=== PATIENT | female | born 1990 | race Caucasian/White ===

== ENCOUNTER → 2017-12-17 | Outpatient (CLI) | payer BC | LOC: M WUC 09:32 | DX: S30.0XXA Contusion of lower back and pelvis, initial encounter (principal) | CPT/HCPCS: 72110 ==

== ENCOUNTER → 2020-06-29 | Outpatient (CLI) | payer BC ==
--- NOTE | 2020-06-29 15:17 | REP ---
INDICATION: ANATOMY. COMPARISON: None. TECHNIQUE: Real-time sonographic evaluation of the gravid uterus performed. FINDINGS: Estimated gestational age is18 weeks 0 days, EDC 11/30/2020. Today's measurements indicate appropriate growth. Presentation: Breech Placenta anterior, grade 0, without evidence of placenta previa. heart rate is recorded at 133 beats per minute. Amniotic fluid is subjectively normal. Closed cervical length is measured at 3.3 cm. Biometry chart: BPD: 40 mm, 18 weeks 2 days, 57th percentile. HC: 155 mm, 18 weeks 3 days, 63rd percentile AC: 127 mm, 18 weeks 2 days, 56th percentile Femur length: 25 mm, 17 weeks 4 days, for 38th percentile HC to AC ratio: 1.22, normal range 1.07-1.26. Estimated weight: 220g, 46th percentile. anatomy: Cranium: Grossly normal Lateral Ventricles/Choroid Plexus: Grossly normal Posterior Fossa/Cerebellum: Grossly normal Nose/lips/profile: Grossly normal Four chamber heart: Not well seen due to position Right ventricular outflow tract: Not well seen due to position Left ventricular outflow tract: Not well seen due to position Left-sided stomach: Grossly normal Kidneys: Grossly normal Bladder: Grossly normal Cord Insertion: Grossly normal 3 vessel cord: Grossly normal Spine: Grossly normal IMPRESSION: Viable single intrauterine gestation as above. <Electronically signed by Luis Castillo > 06/29/20 [id number]
== END ==
LOC: M WHC 10:32
PROVIDERS: ATTEND Obstetrics & Gynecology
DX: Z34.82 Encounter for supervision of other normal pregnancy, second trimester (principal); Z3A.18 18 weeks gestation of pregnancy

== ENCOUNTER → 2020-08-06 | Outpatient (CLI) | payer BC ==
--- NOTE | 2020-08-06 10:02 | REP ---
INDICATION: F/U ANATOMY COMPARISON: 06/29/2020 TECHNIQUE: Transabdominal obstetrical ultrasound with color Doppler evaluation. FINDINGS: Examination demonstrates a single live intrauterine in transverse presentation. motion is identified by technologist. Placenta is noted anterior and grade 1 without evidence for placenta previa or abruption. Amniotic fluid volume is normal. Cervix measures 4.3 cm in length and appears closed.. Gestational age by LMP and 1st U/S 23 weeks 3 days with RAZIA 11/30/2020. Gestational age by current measurements 24 weeks 4 days with RAIZA 11/22/2020. FHR equals 142 beats per minute. Estimated weight 693 grams (85thpercentile). Anatomical assessment demonstrates normal structures including cranium, choroid plexus, cavum, facial features, lungs, four-chamber heart/ventricular outflow tracts, diaphragm, stomach, cord insertion/three-vessel cord, kidneys/bladder, spine, and extremities. IMPRESSION: Single live intrauterine in transverse lie demonstrating appropriate interval growth. In conjunction with prior examination anatomical assessment is complete and normal. <Electronically signed by Sergio Perkins > 08/06/20 [id number]
== END ==
LOC: M WHC 07:15
PROVIDERS: ATTEND Obstetrics & Gynecology
DX: Z34.82 Encounter for supervision of other normal pregnancy, second trimester (principal)

== ENCOUNTER → 2020-08-17 | Outpatient (REF) | payer BC ==
[2020-08-17 13:55] LABS: HEMATOCRIT 36.6 % (36.0-47.0); HEMOGLOBIN 11.9 g/dl (12.0-15.5); MEAN CORPUSCULAR HGB CONC 32.5 g/dl (32.0-36.5); MEAN CORPUSCULAR VOLUME 95.3 fl (80.0-96.0); PLATELET COUNT, AUTOMATED 285 10^3/uL (150-450); RED BLOOD COUNT 3.84 10^6/uL (4.00-5.40); WHITE BLOOD COUNT 7.8 10^3/uL (4.0-10.0)
== END ==
LOC: M PLALAB 09:03
PROVIDERS: ATTEND Specialist
DX: Z34.82 Encounter for supervision of other normal pregnancy, second trimester (principal)

== ENCOUNTER → 2020-11-01 | Outpatient (REF) | payer BC | LOC: M SFHCWAGY 12:59 | PROVIDERS: ATTEND Advanced Practice Midwife | DX: Z36.89 Encounter for other specified antenatal screening (principal); Z3A.35 35 weeks gestation of pregnancy ==

== ENCOUNTER 2020-11-27 21:25 | Inpatient (IN) | payer BC ==
[~2020-11-27] VITALS: Ht 160 cm; Wt 86.4 kg
[2020-11-27 21:58] VITALS: BP 103/53
[2020-11-27] MEDS ORDERED: PROMETHAZINE INJ 25 MG/ML VIAL (J2550) IV ONE (22:05)
[2020-11-27] MEDS ORDERED: BUTORPHANOL 2 MG/ML INJ (J0595) IV ONE (22:05)
[2020-11-27 22:35] LABS: HEMOGLOBIN 11.4 g/dl (12.0-15.5); MEAN CORPUSCULAR HEMOGLOBIN 30.3 pg (27.0-33.0); MEAN CORPUSCULAR HGB CONC 33.5 g/dl (32.0-36.5); MEAN CORPUSCULAR VOLUME 90.4 fl (80.0-96.0); PLATELET COUNT, AUTOMATED 280 10^3/uL (150-450); RED BLOOD COUNT 3.76 10^6/uL (4.00-5.40); WHITE BLOOD COUNT 8.9 10^3/uL (4.0-10.0)
[2020-11-27 23:17] VITALS: BP 118/75
[2020-11-28] VITALS (11 sets, daily range): BP systolic 95–119; BP diastolic 53–61
--- NOTE | 2020-11-28 00:12 | HPEPDOC ---
Obstetrical History & Physical General Date of Admission Nov 27, 2020 at 21:58 History of Present Illness Paris is a 30-year-old three para two who presents at 39 weeks 4 days estimated gestational age with complaints of regular pattern contractions. She reports approximately an hour prior to presentation she had leakage of clear fluid. 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 She has had appropriate care throughout her . Chief Complaint: Contractions, term, LOF, term Information Provided By: Patient Age: 30 : 3 Livin Care Care: Good Care Dating Final EDC: Nov 30, 2020 Final EDC by: LMP EGA at Admission: 39 Past Medical History Past Obstetrical History #1: Past Obstetrical History: Multigravida Date of Delivery: Feb 11, 2013 Type of Delivery: Spontaneous Vaginal Del. Sex of Infant: Female Complications: No Past Obstetrical History #2: Date of Delivery: Jul 06, 2015 Type of Delivery: Spontaneous Vaginal Del. Sex of Infant: Female Complications: No Past Medical History Surgical History: Appendectomy, Tonsilectomy, [place] teeth, Other (bilateral tympanstomy ) Family History Significant Family History: Cancer, Hypertension Social History Marital Status: Family situation: Spouse/partner home Psychosocial History: Anxiety * Smoker: non-smoker Alcohol: Denies Drugs: denies Allergies Coded Allergies: Penicillins (Verified Allergy, Mild, 11/27/20) Physical Examination Physical Examination GENERAL: Alert and oriented times three. BREAST: . ABDOMEN: Gravid and non-tender to touch. FETUS: Is vertex (VTX) by sterile vaginal examination (SVE), fetus is vertex (VTX) by Swapnil. HEART RATE: Regular rate and rhythm. LUNGS: Clear to auscultation (CTA). Vital Signs/I&O Vital Signs Date Time Temp Pulse Resp B/P (MAP) Pulse Ox O2 Delivery O2 Flow Rate FiO2 11/27/20 23:01 18 11/27/20 21:58 97.9 78 103/53 (70) Laboratory Data 24H LABS Laboratory Tests 2 11/27/20 22:21: Nucleated Red Blood Cells % (auto) 0.0, Syphilis Serology NONREACTIVE CBC/BMP Laboratory Tests 11/27/20 22:21 Pertinent Laboratoy Data Blood Type: O+ RBC Antibody Screen: Negative HIV: Negative Hepatitis B: Negative Rapid Plasma Reagin: Nonreactive Rubella: Immune Chlamydia/Gonorrhea: Negative Group B Streptococcus: Negative Anatomy Ultrasound Placenta Location: Anterior Placenta Previa: No Vaginal Examination Dilation: 5 cm Effacement: 80% Station: -2 Cervical Consistency: Soft (Grossly ruptured) Assessment Variability: Moderate Accelerations: Positive Tocometer Contractions: Yes Frequency: regular Assessment/Plan Assessment 30-year-old G3, P2 at [id number] with spontaneous rupture of membranes Reassuring status Plan Admit and orient. Grain Inspector and consent. Diet: Clears. Group B Streptococcus (GBS) negative. Labs and intravenous (IV) per unit protocol. Counseled on Pitocin and induction of labor (IOL). Anticipate normal spontaneous delivery (). C-S as appropriate. MANDO STUART MD. Nov 28, 2020 00:12
[2020-11-28] MEDS ORDERED: OXYTOCIN 30 UNITS IN 0.9% NaCl 500ML IV BAG (J2590) As Ordered ONE (02:10)
[2020-11-28] MEDS ORDERED: OXYTOCIN DRIP 30 UNITS in IV 1 EA IV SCH (02:30)
[2020-11-28] MEDS ORDERED: IBUPROFEN 800 MG TAB PO PRN (02:30)
[2020-11-28] MEDS ORDERED: MOM 30ML SUSPENSION UDC PO PRN (02:30)
[2020-11-28] MEDS ORDERED: DIBUCAINE 1% OINTMENT 30GM TOP PRN (02:30)
[2020-11-28] MEDS ORDERED: DOCUSATE SODIUM 100MG CAPSULE PO PRN (02:30)
[2020-11-28] MEDS ORDERED: METHYLERGONOVINE MALEATE 0.2 MG TAB PO PRN (02:30)
[2020-11-28] MEDS ORDERED: MEASLES,MUMPS,RUBELLA VACCINE INJ (MMR-II) (90707) SC SCH (02:30)
[2020-11-28] MEDS ORDERED: ACETAMINOPHEN TAB 650MG DOSE (2X325MG) PO PRN (02:30)
[2020-11-28] MEDS ORDERED: RHOGAM 300 MCG (1500 IU) INJ (J2790) IM SCH (02:30)
--- NOTE | 2020-11-28 02:34 | DNPDOC ---
[facility] Delivery Note Delivery Note DATE OF DELIVERY: November 28, 2020 TIME OF : 0208 GENDER: Female APGARS: 9 and 9. WEIGHT: 3910g or 8 pounds 10 ounces LACERATIONS: None ANESTHESIA: None ESTIMATED BLOOD LOSS: 200 ml COUNTS: 5 laparotomy sponges accounted for prior to after delivery. DELIVERY NOTE: On November 28, 2020 this patient is a 30-year-old 3 now para 3 had a spontaneous vaginal delivery of a liveborn female Apgars 9 and 9 weight was 3910 g 8 pounds 10 ounces. Head was delivered occiput anterior (OA), followed by delivery of the shoulders and corpus. Infant was handed to mom with a good cry. Cord was clamped times two and was cut by support person under my direction. Placenta was then drained and delivered grossly intact. A premixed bag of 500 mL of normal saline with 30 units of Pitocin was then bolused along with uterine massage until the uterus was firm. On inspection, cervix, vagina, perineum was grossly intact and hemostatic. Mom and baby in recovery on stable condition. Couples decided in a new daughter's MANDO Andino MD. Nov 28, 2020 02:34
[2020-11-28] MEDS: MAGNESIUM GLUCONATE 500 MG TAB PO SCH (04:11)
[2020-11-28] MEDS: ACETAMINOPHEN 500 MG TAB PO PRN ×2 (08:19→15:09)
[2020-11-28] MEDS: PRENATAL VITAMINS CHEWABLE TABLET PO SCH (08:19)
[2020-11-29] MEDS: IBUPROFEN 600MG TAB PO PRN ×3 (01:58→14:20)
[2020-11-29 06:00] VITALS: BP 94/53
[2020-11-29 07:28] VITALS: BP 103/53
[2020-11-29] MEDS: PRENATAL VITAMINS CHEWABLE TABLET PO SCH ×2 (08:15→08:17)
[2020-11-29] MEDS: MAGNESIUM GLUCONATE 500 MG TAB PO SCH (09:14)
[2020-11-29] MEDS ORDERED: IBUP80TA PO (17:23)
--- NOTE | 2020-11-29 17:47 | IPNPDOC ---
Progress Note Date of Service: Nov 29, 2020 Day#: 1 Progress Note SUBJECT: Status post . She has been ambulating, voiding spontaneously with out issue and tolerating regular diet. Lochia decreasing/minimal. Pain is well- controlled. Denies headache, visual changes, right upper quadrant pain, shortness breath or chest pain. OBJECTIVE: VITAL SIGNS: Within normal limits, afebrile. Alert and oriented times three. Abdomen: Fundus firm at U-2. Soft, NTTP. ASSESSMENT: Status post uncomplicated spontaneous vaginal delivery. Vitals within normal limits, afebrile, hemodynamically stable with no evidence of infection. PLAN: Discharge to home today. Tylenol and Motrin for pain. Routine instructions/precautions reviewed. Routine PP visit in 6 weeks in clinic. VS, I&O, 24H, Fishbone Vital Signs/I&O Vital Signs Date Time Temp Pulse Resp B/P (MAP) Pulse Ox O2 Delivery O2 Flow Rate FiO2 11/29/20 07:28 98.6 73 20 103/53 (70) 100 Room Air SHARRON DUMONT DO Nov 29, 2020 17:47
== END 2020-11-29 17:45 | disposition home or self-care (01) | DRG 560 ==
LOC: M LDO 21:25 → M LDI 21:58 → M PED 11-28 06:27
PROVIDERS: ADMIT Obstetrics & Gynecology; ATTEND Obstetrics & Gynecology
PROC: 10E0XZZ Delivery of Products of Conception, External Approach (ICD-10-PCS; principal; 2020-11-28)
DX: O80 Encounter for full-term uncomplicated delivery (principal); Z37.0 Single live birth; Z3A.39 39 weeks gestation of pregnancy

== ENCOUNTER → 2021-09-03 | Outpatient (REF) | payer BC ==
[~2021-09-03] MED LIST: IBUP80TA PO
== END ==
LOC: M SFHCWAGY 17:23
PROVIDERS: ATTEND Obstetrics & Gynecology
DX: Z12.4 Encounter for screening for malignant neoplasm of cervix (principal)

== ENCOUNTER → 2022-01-06 | Outpatient (CLI) | payer BC ==
[~2022-01-06] MED LIST changes: +CETI-24 PO; +FLON1SPR; +MULT1CHW29 PO; +SERT50TA29 PO
== END ==
LOC: M LABSMTC 11:01
PROVIDERS: ATTEND Anesthesiology
DX: Z01.812 Encounter for preprocedural laboratory examination (principal); Z20.822 Contact with and (suspected) exposure to COVID-19

== ENCOUNTER 2022-01-08 07:35 | Day surgery (SDC) | payer BC ==
[~2022-01-08] VITALS: Ht 160 cm; Wt 86.2 kg
[2022-01-08] MEDS ORDERED: KETOROLAC 60MG 2ML VIAL As Ordered ONE ×2 (08:03→09:28)
[2022-01-08] MEDS ORDERED: MIDAZOLAM INJ 2MG/2ML VIAL (J2250 PER 1MG) As Ordered ONE (08:03)
[2022-01-08] MEDS ORDERED: ONDANSETRON 4MG 2ML VIAL As Ordered ONE ×2 (08:03→09:28)
[2022-01-08] MEDS ORDERED: fentaNYL 100 MCG/2 ML INJECTION As Ordered ONE ×2 (08:03→09:44)
[2022-01-08] MEDS ORDERED: METOCLOPRAMIDE INJ 10MG/2ML VIAL (J2765 PER 1) As Ordered ONE ×2 (08:03→09:28)
[2022-01-08] MEDS ORDERED: LIDOCAINE 2% 100MG/5ML SDV (FOR ANES.) As Ordered ONE (08:03)
[2022-01-08] MEDS ORDERED: SUGAMMADEX SODIUM 500 MG/5 ML VIAL (BRIDION) As Ordered ONE ×2 (08:03→09:28)
[2022-01-08] MEDS ORDERED: ROCURONIUM BROMIDE 50 MG/5 ML VIAL As Ordered ONE ×2 (08:03→09:28)
[2022-01-08] MEDS ORDERED: propofoL 200 MG/20 ML VIAL As Ordered ONE ×3 (08:03→10:25)
[2022-01-08] MEDS ORDERED: dexameTHASONE 4 MG/ML 1ML VIAL (J1100 PER 1MG) As Ordered ONE ×2 (08:03→09:28)
[2022-01-08] MEDS ORDERED: LR 1,000 ML IV SCH ×2 (08:20→10:30)
[2022-01-08 08:29] LABS: HEMATOCRIT 41.9 % (36.0-47.0); HEMOGLOBIN 13.6 g/dl (12.0-15.5); MEAN CORPUSCULAR HEMOGLOBIN 29.4 pg (27.0-33.0); MEAN CORPUSCULAR HGB CONC 32.5 g/dl (32.0-36.5); MEAN CORPUSCULAR VOLUME 90.5 fl (80.0-96.0); PLATELET COUNT, AUTOMATED 376 10^3/uL (150-450); RED BLOOD COUNT 4.63 10^6/uL (4.00-5.40); WHITE BLOOD COUNT 7.2 10^3/uL (4.0-10.0)
[2022-01-08] MEDS ORDERED: BUPIVACAINE HCL 0.25% 10ML VIAL As Ordered ONE (08:58)
[2022-01-08 09:02] LABS: HCG, SERUM QUALITATIVE NEGATIVE (NEGATIVE)
[2022-01-08] MEDS ORDERED: BUPIVACAINE HCL 0.25% 30ML VIAL As Ordered ONE (09:11)
[2022-01-08] MEDS ORDERED: ACETAMINOPHEN 1000MG 100ML IV BTL (OFIRMEV) (J0131 PER 10MG) As Ordered ONE (09:28)
[2022-01-08] MEDS ORDERED: fentaNYL 100 MCG/2 ML INJECTION IV PRN (10:30)
[2022-01-08] MEDS ORDERED: ONDANSETRON 4MG 2ML VIAL IV PRN (10:30)
[2022-01-08] MEDS ORDERED: oxyCODONE 5MG TAB PO PRN (10:30)
[2022-01-08] MEDS ORDERED: IBUP1TAB7 PO (10:37)
[2022-01-08] MEDS ORDERED: COLA100C5 PO (10:37)
[2022-01-08] MEDS ORDERED: PERC5TAB12 PO (10:38)
[2022-01-08 11:48] VITALS: BP 118/69
== END 2022-01-08 11:54 | disposition home or self-care (01) ==
LOC: M SDC 07:35
PROVIDERS: ATTEND Obstetrics & Gynecology
DX: Z30.2 Encounter for sterilization (principal); N80.102 Endometriosis of left ovary, unspecified depth; N80.329 Endometriosis of the posterior cul-de-sac, unspecified depth; F41.9 Anxiety disorder, unspecified; G43.909 Migraine, unspecified, not intractable, without status migrainosus; Z79.899 Other long term (current) drug therapy; Z88.0 Allergy status to penicillin
CPT/HCPCS: 36415; 58661; 84703; 85027; 86850; 86900; 86901; 88302; J0131; J1100; J1885; J2250; J2405; J2765; J3010

== ENCOUNTER → 2023-03-17 | Outpatient (CLI) | payer BC ==
[~2023-03-17] MED LIST changes: +COLA100C5 PO; +IBUP1TAB7 PO; +PERC5TAB12 PO
== END ==
LOC: M PLALAB 08:28
PROVIDERS: ATTEND Obstetrics & Gynecology
DX: Z80.3 Family history of malignant neoplasm of breast (principal)

== ENCOUNTER → 2024-11-22 | Outpatient (CLI) | payer BC ==
[2024-11-22 13:53] LABS: PLATELET COUNT, AUTOMATED 354 10^3/uL (150-450)
[2024-11-24 15:47] LABS: HPV APTIMA Not Detected (Not Detected)
== END ==
LOC: M PLALAB 09:26
PROVIDERS: ATTEND Obstetrics & Gynecology
DX: N93.9 Abnormal uterine and vaginal bleeding, unspecified (principal)

== ENCOUNTER → 2025-01-23 | Outpatient (CLI) | payer BC | LOC: M WHC 06:52 | PROVIDERS: ATTEND Obstetrics & Gynecology | DX: N93.9 Abnormal uterine and vaginal bleeding, unspecified (principal) ==